=== PATIENT | male | born 1970 | race Caucasian/White ===

== ENCOUNTER 2017-10-22 08:58 | Inpatient (IN) | payer MEDICARE, MEDICAID, OTHER ==
[2017-10-22 10:07] LABS: BASOPHIL % 0.4 % (0.0-2.0); EOSINOPHIL # 0.2 TH/MM3 (0-0.4); HEMATOCRIT 33.9 % (39.0-51.0); HEMO FLAGS DIFF FINAL; HEMOGLOBIN 10.4 GM/DL (13.0-17.0); LYMPH % 16.7 % (9.0-44.0); LYMPHOCYTE # 1.6 TH/MM3 (1.0-4.8); MEAN CELL VOLUME 68.5 FL (80.0-100.0); MEAN CORPUSCULAR HGB CONC 30.7 % (32.0-36.0); MEAN PLATELET VOLUME 8.2 FL (7.0-11.0); MONO % 8.5 % (0.0-8.0); MONOCYTE # 0.8 TH/MM3 (0-0.9); NEUT % 72.4 % (16.0-70.0); PLATELET COUNT 245 TH/MM3 (150-450); RED BLOOD COUNT 4.96 MIL/MM3 (4.50-5.90); WHITE BLOOD COUNT 9.6 TH/MM3 (4.0-11.0)
[2017-10-22 10:22] LABS: ALKALINE PHOSPHATASE 103 U/L (45-117); TOTAL BILIRUBIN ADULT 0.3 MG/DL (0.2-1.0); TOTAL PROTEIN 8.5 GM/DL (6.4-8.2)
[2017-10-22 10:25] LABS: ALBUMIN 4.3 GM/DL (3.4-5.0); ALT (GPT) 36 U/L (12-78); ANION GAP 9 MEQ/L (5-15); AST (GOT) 22 U/L (15-37); BICARBONATE 24.5 MEQ/L (21.0-32.0); BLOOD UREA NITROGEN 23 MG/DL (7-18); CALCIUM 9.5 MG/DL (8.5-10.1); CHLORIDE 107 MEQ/L (98-107); CREATININE 1.22 MG/DL (0.60-1.30); GLOMERULAR FILTRATION RATE 64 ML/MIN (>89); GLUCOSE,RANDOM 154 MG/DL (74-106); SODIUM (NA) 140 MEQ/L (136-145)
[2017-10-22 10:31] LABS: AMPHETAMINE, URINE NEG (NEG); BARBITURATES, URINE NEG (NEG); BENZODIAZEPINE,URINE NEG (NEG); CANNABINOIDS, URINE NEG (NEG); COCAINE, URINE NEG (NEG)
[2017-10-22] MEDS ORDERED: LORazepam 2 MG/ML VIAL IM (17:45)
[2017-10-22] MEDS ORDERED: IBUPROFEN 600 MG TAB PO (17:45)
[2017-10-22] MEDS ORDERED: ALUMINUM/MAGNESIUM/SIMETH 30 ML CUP PO (17:45)
[2017-10-22] MEDS: hydrALAZINE HCL 100 MG TAB PO (18:00)
[2017-10-22] MEDS: MYCOPHENOLATE MOFETIL 250 MG CAP PO (20:58)
[2017-10-22] MEDS: POTASSIUM CHLORIDE 20 MEQ CONTROLLED RELEASE TAB PO (20:58)
[2017-10-22] MEDS: PRAVASTATIN SOD 40 MG TAB PO (20:59)
[2017-10-22] MEDS: OXcarbazepine 300 MG TAB PO (20:59)
[2017-10-22] MEDS: LORazepam 1 MG TAB PO (21:47)
[2017-10-22] MEDS: MAGNESIUM OXIDE 400 MG TAB PO (21:47)
[2017-10-23] MEDS: hydrALAZINE HCL 100 MG TAB PO ×3 (09:24→18:13)
[2017-10-23] MEDS: TACROLIMUS 1 MG CAP PO (09:24)
[2017-10-23] MEDS: RIVAROXABAN 20 MG TAB PO (09:24)
[2017-10-23] MEDS: TORSEMIDE 20 MG TAB PO (09:24)
[2017-10-23] MEDS: MYCOPHENOLATE MOFETIL 250 MG CAP PO ×2 (09:25→20:49)
[2017-10-23] MEDS: POTASSIUM CHLORIDE 20 MEQ CONTROLLED RELEASE TAB PO ×2 (09:25→20:49)
[2017-10-23] MEDS: OXcarbazepine 300 MG TAB PO ×2 (09:25→20:49)
[2017-10-23] MEDS: PANTOPRAZOLE SOD 40 MG DELAYED RELEASE TAB PO (09:25)
[2017-10-23] MEDS: MAGNESIUM OXIDE 400 MG TAB PO ×2 (11:27→22:07)
[2017-10-23 11:44] LABS: AUTOMATED NEUTROPHIL # 8.5 TH/MM3 (1.8-7.7); BASOPHIL % 0.4 % (0.0-2.0); EOSINOPHIL # 0.3 TH/MM3 (0-0.4); EOSINOPHIL % 2.3 % (0.0-4.0); HEMATOCRIT 34.1 % (39.0-51.0); HEMO FLAGS DIFF FINAL; HEMOGLOBIN 10.4 GM/DL (13.0-17.0); LYMPH % 17.9 % (9.0-44.0); LYMPHOCYTE # 2.1 TH/MM3 (1.0-4.8); MEAN CELL VOLUME 67.5 FL (80.0-100.0); MEAN CORPUSCULAR HEMOGLOBIN 20.6 PG (27.0-34.0); MEAN CORPUSCULAR HGB CONC 30.6 % (32.0-36.0); MEAN PLATELET VOLUME 7.5 FL (7.0-11.0); MONO % 7.6 % (0.0-8.0); MONOCYTE # 0.9 TH/MM3 (0-0.9); NEUT % 71.8 % (16.0-70.0); PLATELET COUNT 291 TH/MM3 (150-450); RED BLOOD COUNT 5.06 MIL/MM3 (4.50-5.90); RED CELL DISTRIBUTION WIDTH 17.9 % (11.6-17.2); WHITE BLOOD COUNT 11.8 TH/MM3 (4.0-11.0)
[2017-10-23 12:15] LABS: ALBUMIN 4.4 GM/DL (3.4-5.0); ALT (GPT) 39 U/L (12-78); ANION GAP 11 MEQ/L (5-15); AST (GOT) 19 U/L (15-37); BICARBONATE 24.3 MEQ/L (21.0-32.0); BLOOD UREA NITROGEN 16 MG/DL (7-18); CALCIUM 9.5 MG/DL (8.5-10.1); CHLORIDE 101 MEQ/L (98-107); CHOLESTEROL 250 MG/DL (120-200); CREATININE 1.18 MG/DL (0.60-1.30); GLOMERULAR FILTRATION RATE 66 ML/MIN (>89); GLUCOSE,RANDOM 149 MG/DL (74-106); POTASSIUM 3.5 MEQ/L (3.5-5.1); SODIUM (NA) 136 MEQ/L (136-145)
[2017-10-23 12:40] LABS: ALKALINE PHOSPHATASE 110 U/L (45-117); CHOLESTEROL/ HDL RATIO 8.44 RATIO; HDL CHOLESTEROL 29.6 MG/DL (40.0-60.0); LDL CHOLESTEROL 151 MG/DL (0-99); TOTAL BILIRUBIN ADULT 0.4 MG/DL (0.2-1.0); TOTAL PROTEIN 8.9 GM/DL (6.4-8.2); TRIGLYCERIDES 345 MG/DL (42-150)
[2017-10-23 12:43] LABS: HEMOGLOBIN A1C 6.8 % (4.3-6.0); HEMOGLOBIN A1a 1.7 %; HEMOGLOBIN A1b 2.1 %; HEMOGLOBIN Ao 81.4 %; HEMOGLOBIN LA1C 2.9 %; HEMOGLOBIN P3 6.2 %
[2017-10-23] MEDS ORDERED: DEXTROSE 50% IN WATER 50 ML VIAL(D50) IV PUSH (14:15)
[2017-10-23] MEDS ORDERED: GLUCAGON 1 MG/ML VIAL OTHER (14:15)
[2017-10-23] MEDS: CHOLECALCIFEROL (VIT D3) 1000 UNIT TAB PO (16:04)
[2017-10-23] MEDS: ATORVASTATIN 40 MG TAB PO (16:04)
[2017-10-23] MEDS: INSULIN ASPART SUPPLEMENTAL SCALE SQ ×2 (16:11→20:46)
[2017-10-23] MEDS: TACROLIMUS 0.5 MG CAP PO (18:13)
[2017-10-23] MEDS ORDERED: TACROLIMUS 0.5 MG CAP PO (18:30)
[2017-10-23] MEDS: LORazepam 1 MG TAB PO (20:48)
[2017-10-23] MEDS ORDERED: PRAVASTATIN SOD 40 MG TAB PO (21:00)
[2017-10-24] MEDS: TACROLIMUS 1 MG CAP PO (05:56)
[2017-10-24] MEDS: INSULIN ASPART SUPPLEMENTAL SCALE SQ ×4 (08:00→20:43)
[2017-10-24] MEDS: hydrALAZINE HCL 100 MG TAB PO ×3 (08:43→17:29)
[2017-10-24] MEDS: MYCOPHENOLATE MOFETIL 250 MG CAP PO ×2 (08:43→20:40)
[2017-10-24] MEDS: ATORVASTATIN 40 MG TAB PO (08:43)
[2017-10-24] MEDS: TORSEMIDE 20 MG TAB PO (08:44)
[2017-10-24] MEDS: OXcarbazepine 300 MG TAB PO ×2 (08:44→20:40)
[2017-10-24] MEDS: POTASSIUM CHLORIDE 20 MEQ CONTROLLED RELEASE TAB PO ×2 (08:44→20:40)
[2017-10-24] MEDS: CHOLECALCIFEROL (VIT D3) 1000 UNIT TAB PO (08:44)
[2017-10-24] MEDS: PANTOPRAZOLE SOD 40 MG DELAYED RELEASE TAB PO (08:44)
[2017-10-24] MEDS: RIVAROXABAN 20 MG TAB PO (08:46)
[2017-10-24 11:34] LABS: HEMATOCRIT 31.7 % (39.0-51.0); HEMOGLOBIN 9.9 GM/DL (13.0-17.0); MEAN CELL VOLUME 68.3 FL (80.0-100.0); MEAN CORPUSCULAR HEMOGLOBIN 21.2 PG (27.0-34.0); MEAN CORPUSCULAR HGB CONC 31.1 % (32.0-36.0); MEAN PLATELET VOLUME 8.6 FL (7.0-11.0); PLATELET COUNT 295 TH/MM3 (150-450); RED BLOOD COUNT 4.64 MIL/MM3 (4.50-5.90); RED CELL DISTRIBUTION WIDTH 18.1 % (11.6-17.2); REVIEW FLAG FINAL; WHITE BLOOD COUNT 12.4 TH/MM3 (4.0-11.0)
[2017-10-24] MEDS: MAGNESIUM OXIDE 400 MG TAB PO ×2 (12:04→22:49)
[2017-10-24 12:17] LABS: ANION GAP 11 MEQ/L (5-15); BICARBONATE 24.4 MEQ/L (21.0-32.0); BLOOD UREA NITROGEN 28 MG/DL (7-18); CHLORIDE 100 MEQ/L (98-107); CREATININE 1.84 MG/DL (0.60-1.30); GLOMERULAR FILTRATION RATE 40 ML/MIN (>89); GLUCOSE,RANDOM 167 MG/DL (74-106); POTASSIUM 3.7 MEQ/L (3.5-5.1); SODIUM (NA) 135 MEQ/L (136-145)
[2017-10-24] MEDS: TACROLIMUS 0.5 MG CAP PO (17:28)
[2017-10-24] MEDS: METOPROLOL TARTRATE 25 MG TAB PO ×2 (17:29→20:41)
[2017-10-24 21:12] LABS: BILIRUBIN, URINE NEG (NEG); BLOOD, URINE NEG (NEG); COMMENT (UR) CULT NOT INDICATED; CULTURE IF INDICATED CULT NOT INDICATED; GLUCOSE,URINE NEG (NEG); HYALINE CAST, URINE 3 /lpf (RARE); KETONE, URINE NEG (NEG); MUCUS URINE FEW /lpf (OCC); NITRITE,URINE NEG (NEG); URINE COLOR YELLOW (YELLW/STRAW); URINE LEUKOCYTE ESTERASE NEG (NEG)
[2017-10-25] MEDS: TACROLIMUS 1 MG CAP PO (05:04)
[2017-10-25] MEDS: INSULIN ASPART SUPPLEMENTAL SCALE SQ ×2 (07:40→16:00)
[2017-10-25] MEDS: PANTOPRAZOLE SOD 40 MG DELAYED RELEASE TAB PO (08:43)
[2017-10-25] MEDS: TORSEMIDE 20 MG TAB PO (08:43)
[2017-10-25] MEDS: hydrALAZINE HCL 100 MG TAB PO ×3 (08:43→16:48)
[2017-10-25] MEDS: RIVAROXABAN 20 MG TAB PO (08:43)
[2017-10-25] MEDS: POTASSIUM CHLORIDE 20 MEQ CONTROLLED RELEASE TAB PO ×2 (08:44→21:00)
[2017-10-25] MEDS: MYCOPHENOLATE MOFETIL 250 MG CAP PO ×2 (08:44→21:00)
[2017-10-25] MEDS: OXcarbazepine 300 MG TAB PO ×2 (08:44→21:00)
[2017-10-25] MEDS: METOPROLOL TARTRATE 25 MG TAB PO ×2 (08:44→21:00)
[2017-10-25] MEDS: CHOLECALCIFEROL (VIT D3) 1000 UNIT TAB PO (08:44)
[2017-10-25] MEDS: ATORVASTATIN 40 MG TAB PO (08:44)
[2017-10-25] MEDS: MAGNESIUM OXIDE 400 MG TAB PO ×2 (11:00→22:37)
[2017-10-25 12:28] LABS: TACROLIMUS 8.4 NG/ML (5.0-20.0)
[2017-10-25] MEDS: TACROLIMUS 0.5 MG CAP PO (16:48)
[2017-10-26] MEDS: TACROLIMUS 1 MG CAP PO (06:00)
[2017-10-26] MEDS: INSULIN ASPART SUPPLEMENTAL SCALE SQ ×2 (06:38→15:44)
[2017-10-26] MEDS: hydrALAZINE HCL 100 MG TAB PO ×3 (07:54→17:12)
[2017-10-26] MEDS: RIVAROXABAN 20 MG TAB PO (07:54)
[2017-10-26] MEDS: PANTOPRAZOLE SOD 40 MG DELAYED RELEASE TAB PO (07:55)
[2017-10-26] MEDS: POTASSIUM CHLORIDE 20 MEQ CONTROLLED RELEASE TAB PO ×2 (07:55→19:57)
[2017-10-26] MEDS: CHOLECALCIFEROL (VIT D3) 1000 UNIT TAB PO (07:55)
[2017-10-26] MEDS: TORSEMIDE 20 MG TAB PO (07:55)
[2017-10-26] MEDS: OXcarbazepine 300 MG TAB PO ×2 (07:55→19:57)
[2017-10-26] MEDS: ATORVASTATIN 40 MG TAB PO (07:55)
[2017-10-26] MEDS: METOPROLOL TARTRATE 25 MG TAB PO ×2 (07:55→19:53)
[2017-10-26] MEDS: MYCOPHENOLATE MOFETIL 250 MG CAP PO ×2 (07:55→19:57)
[2017-10-26 09:16] LABS: HEMATOCRIT 31.3 % (39.0-51.0); HEMOGLOBIN 9.7 GM/DL (13.0-17.0); MEAN CELL VOLUME 68.2 FL (80.0-100.0); MEAN CORPUSCULAR HEMOGLOBIN 21.2 PG (27.0-34.0); MEAN CORPUSCULAR HGB CONC 31.1 % (32.0-36.0); MEAN PLATELET VOLUME 8.5 FL (7.0-11.0); PLATELET COUNT 271 TH/MM3 (150-450); RED BLOOD COUNT 4.59 MIL/MM3 (4.50-5.90); RED CELL DISTRIBUTION WIDTH 18.2 % (11.6-17.2); REVIEW FLAG FINAL; WHITE BLOOD COUNT 11.8 TH/MM3 (4.0-11.0)
[2017-10-26 09:42] LABS: BICARBONATE 24.5 MEQ/L (21.0-32.0); BLOOD UREA NITROGEN 30 MG/DL (7-18); CALCIUM 9.2 MG/DL (8.5-10.1); CREATININE 1.67 MG/DL (0.60-1.30); GLOMERULAR FILTRATION RATE 44 ML/MIN (>89); GLUCOSE,RANDOM 189 MG/DL (74-106)
[2017-10-26 09:57] LABS: ANION GAP 11 MEQ/L (5-15); CHLORIDE 103 MEQ/L (98-107); POTASSIUM 3.8 MEQ/L (3.5-5.1); SODIUM (NA) 138 MEQ/L (136-145)
[2017-10-26] MEDS: MAGNESIUM OXIDE 400 MG TAB PO ×2 (11:00→23:10)
[2017-10-26] MEDS: hydrOXYzine HCL 50 MG TAB PO (11:25)
[2017-10-26] MEDS: ACETAMINOPHEN 325 MG TAB PO (15:45)
[2017-10-26] MEDS: TACROLIMUS 0.5 MG CAP PO (17:12)
[2017-10-27] MEDS: TACROLIMUS 1 MG CAP PO (06:35)
[2017-10-27] MEDS: INSULIN ASPART SUPPLEMENTAL SCALE SQ ×2 (07:00→15:56)
[2017-10-27] MEDS: METOPROLOL TARTRATE 25 MG TAB PO ×2 (08:19→22:20)
[2017-10-27] MEDS: MYCOPHENOLATE MOFETIL 250 MG CAP PO ×2 (08:19→22:18)
[2017-10-27] MEDS: ATORVASTATIN 40 MG TAB PO (08:20)
[2017-10-27] MEDS: OXcarbazepine 300 MG TAB PO ×2 (08:20→22:18)
[2017-10-27] MEDS: POTASSIUM CHLORIDE 20 MEQ CONTROLLED RELEASE TAB PO ×2 (08:20→22:18)
[2017-10-27] MEDS: PANTOPRAZOLE SOD 40 MG DELAYED RELEASE TAB PO (08:20)
[2017-10-27] MEDS: TORSEMIDE 20 MG TAB PO (08:20)
[2017-10-27] MEDS: hydrALAZINE HCL 100 MG TAB PO ×3 (08:23→17:44)
[2017-10-27] MEDS: CHOLECALCIFEROL (VIT D3) 1000 UNIT TAB PO (09:08)
[2017-10-27] MEDS: RIVAROXABAN 20 MG TAB PO (09:08)
[2017-10-27] MEDS: MAGNESIUM OXIDE 400 MG TAB PO ×2 (12:35→23:31)
[2017-10-27 17:09] LABS: ANION GAP 11 MEQ/L (5-15); BICARBONATE 23.8 MEQ/L (21.0-32.0); BLOOD UREA NITROGEN 25 MG/DL (7-18); CALCIUM 8.6 MG/DL (8.5-10.1); CHLORIDE 104 MEQ/L (98-107); CREATININE 1.81 MG/DL (0.60-1.30); GLOMERULAR FILTRATION RATE 40 ML/MIN (>89); GLUCOSE,RANDOM 136 MG/DL (74-106); POTASSIUM 3.9 MEQ/L (3.5-5.1); SODIUM (NA) 139 MEQ/L (136-145)
[2017-10-27] MEDS: TACROLIMUS 0.5 MG CAP PO (17:44)
[2017-10-27] MEDS: ACETAMINOPHEN 325 MG TAB PO (23:38)
[2017-10-28] MEDS: ACETAMINOPHEN 325 MG TAB PO (05:05)
[2017-10-28] MEDS: TACROLIMUS 1 MG CAP PO (05:05)
[2017-10-28] MEDS: INSULIN ASPART SUPPLEMENTAL SCALE SQ ×2 (06:26→16:00)
[2017-10-28] MEDS: POTASSIUM CHLORIDE 20 MEQ CONTROLLED RELEASE TAB PO ×2 (08:22→21:00)
[2017-10-28] MEDS: METOPROLOL TARTRATE 25 MG TAB PO ×2 (08:23→21:00)
[2017-10-28] MEDS: OXcarbazepine 300 MG TAB PO ×2 (08:23→21:14)
[2017-10-28] MEDS: TORSEMIDE 20 MG TAB PO (08:23)
[2017-10-28] MEDS: PANTOPRAZOLE SOD 40 MG DELAYED RELEASE TAB PO (08:23)
[2017-10-28] MEDS: hydrALAZINE HCL 100 MG TAB PO ×3 (08:23→17:09)
[2017-10-28] MEDS: ATORVASTATIN 40 MG TAB PO (08:23)
[2017-10-28] MEDS: MYCOPHENOLATE MOFETIL 250 MG CAP PO ×2 (08:23→21:14)
[2017-10-28] MEDS: RIVAROXABAN 20 MG TAB PO (08:23)
[2017-10-28] MEDS: CHOLECALCIFEROL (VIT D3) 1000 UNIT TAB PO (08:27)
[2017-10-28] MEDS: MAGNESIUM OXIDE 400 MG TAB PO ×2 (12:28→22:59)
[2017-10-28] MEDS: TACROLIMUS 0.5 MG CAP PO (17:09)
[2017-10-29] MEDS: LORazepam 1 MG TAB PO ×2 (00:44→20:42)
[2017-10-29] MEDS: MAGNESIUM HYDROXIDE SUSP 30 ML CUP PO (02:05)
[2017-10-29] MEDS: TACROLIMUS 1 MG CAP PO (06:42)
[2017-10-29] MEDS: INSULIN ASPART SUPPLEMENTAL SCALE SQ ×2 (06:48→16:00)
[2017-10-29] MEDS: PANTOPRAZOLE SOD 40 MG DELAYED RELEASE TAB PO (08:26)
[2017-10-29] MEDS: RIVAROXABAN 20 MG TAB PO (08:26)
[2017-10-29] MEDS: OXcarbazepine 300 MG TAB PO ×2 (08:26→20:38)
[2017-10-29] MEDS: METOPROLOL TARTRATE 25 MG TAB PO ×2 (08:26→20:38)
[2017-10-29] MEDS: CHOLECALCIFEROL (VIT D3) 1000 UNIT TAB PO (08:26)
[2017-10-29] MEDS: POTASSIUM CHLORIDE 20 MEQ CONTROLLED RELEASE TAB PO ×2 (08:26→20:38)
[2017-10-29] MEDS: hydrALAZINE HCL 100 MG TAB PO ×3 (08:27→17:21)
[2017-10-29] MEDS: ATORVASTATIN 40 MG TAB PO (08:27)
[2017-10-29] MEDS: MYCOPHENOLATE MOFETIL 250 MG CAP PO ×2 (08:27→20:38)
[2017-10-29] MEDS: TORSEMIDE 20 MG TAB PO (08:27)
[2017-10-29] MEDS: MAGNESIUM OXIDE 400 MG TAB PO ×2 (11:00→23:07)
[2017-10-29 12:56] LABS: ANION GAP 7 MEQ/L (5-15); BICARBONATE 27.1 MEQ/L (21.0-32.0); BLOOD UREA NITROGEN 22 MG/DL (7-18); CALCIUM 8.9 MG/DL (8.5-10.1); CHLORIDE 103 MEQ/L (98-107); CREATININE 1.52 MG/DL (0.60-1.30); GLOMERULAR FILTRATION RATE 49 ML/MIN (>89); GLUCOSE,RANDOM 177 MG/DL (74-106); POTASSIUM 4.1 MEQ/L (3.5-5.1); SODIUM (NA) 137 MEQ/L (136-145)
[2017-10-29] MEDS: TACROLIMUS 0.5 MG CAP PO (17:21)
[2017-10-29 19:31] LABS: TACROLIMUS 6.2 NG/ML (5.0-20.0)
[2017-10-29] MEDS: hydrOXYzine HCL 50 MG TAB PO (20:38)
[2017-10-30] MEDS: TACROLIMUS 1 MG CAP PO (06:19)
[2017-10-30] MEDS: INSULIN ASPART SUPPLEMENTAL SCALE SQ ×2 (06:38→16:00)
[2017-10-30] MEDS: ACETAMINOPHEN 325 MG TAB PO ×2 (06:56→21:23)
[2017-10-30] MEDS: ATORVASTATIN 40 MG TAB PO (08:25)
[2017-10-30] MEDS: MYCOPHENOLATE MOFETIL 250 MG CAP PO ×2 (08:25→21:21)
[2017-10-30] MEDS: RIVAROXABAN 20 MG TAB PO (08:25)
[2017-10-30] MEDS: TORSEMIDE 20 MG TAB PO (08:25)
[2017-10-30] MEDS: OXcarbazepine 300 MG TAB PO ×2 (08:26→21:22)
[2017-10-30] MEDS: POTASSIUM CHLORIDE 20 MEQ CONTROLLED RELEASE TAB PO ×2 (08:26→21:22)
[2017-10-30] MEDS: PANTOPRAZOLE SOD 40 MG DELAYED RELEASE TAB PO (08:26)
[2017-10-30] MEDS: CHOLECALCIFEROL (VIT D3) 1000 UNIT TAB PO (08:26)
[2017-10-30] MEDS: METOPROLOL TARTRATE 25 MG TAB PO ×2 (08:30→21:22)
[2017-10-30] MEDS: hydrALAZINE HCL 100 MG TAB PO ×3 (08:30→18:00)
[2017-10-30] MEDS: MAGNESIUM OXIDE 400 MG TAB PO ×2 (11:47→23:00)
[2017-10-30] MEDS: TACROLIMUS 0.5 MG CAP PO (18:00)
[2017-10-30] MEDS: LORazepam 1 MG TAB PO (21:22)
[2017-10-31] MEDS: TACROLIMUS 1 MG CAP PO (06:13)
[2017-10-31] MEDS: INSULIN ASPART SUPPLEMENTAL SCALE SQ ×2 (06:17→16:00)
[2017-10-31] MEDS: hydrALAZINE HCL 100 MG TAB PO ×3 (09:00→17:31)
[2017-10-31] MEDS: ACETAMINOPHEN 325 MG TAB PO ×2 (09:41→20:55)
[2017-10-31] MEDS: POTASSIUM CHLORIDE 20 MEQ CONTROLLED RELEASE TAB PO ×2 (09:43→20:50)
[2017-10-31] MEDS: MYCOPHENOLATE MOFETIL 250 MG CAP PO ×2 (09:43→20:50)
[2017-10-31] MEDS: ATORVASTATIN 40 MG TAB PO (09:43)
[2017-10-31] MEDS: RIVAROXABAN 20 MG TAB PO (09:44)
[2017-10-31] MEDS: OXcarbazepine 300 MG TAB PO ×2 (09:44→20:50)
[2017-10-31] MEDS: CHOLECALCIFEROL (VIT D3) 1000 UNIT TAB PO (09:44)
[2017-10-31] MEDS: TORSEMIDE 20 MG TAB PO (09:44)
[2017-10-31] MEDS: PANTOPRAZOLE SOD 40 MG DELAYED RELEASE TAB PO (09:45)
[2017-10-31] MEDS: METOPROLOL TARTRATE 25 MG TAB PO ×2 (09:45→20:50)
[2017-10-31 11:07] LABS: ANION GAP 9 MEQ/L (5-15); BICARBONATE 24.9 MEQ/L (21.0-32.0); BLOOD UREA NITROGEN 22 MG/DL (7-18); CALCIUM 9.3 MG/DL (8.5-10.1); CHLORIDE 104 MEQ/L (98-107); CREATININE 1.55 MG/DL (0.60-1.30); GLOMERULAR FILTRATION RATE 48 ML/MIN (>89); GLUCOSE,RANDOM 197 MG/DL (74-106); SODIUM (NA) 138 MEQ/L (136-145)
[2017-10-31] MEDS: MAGNESIUM OXIDE 400 MG TAB PO ×2 (11:53→22:38)
[2017-10-31 12:17] LABS: TROPONIN I 0.02 NG/ML (0.02-0.05)
[2017-10-31] MEDS: TACROLIMUS 0.5 MG CAP PO (17:32)
[2017-11-01] MEDS: TACROLIMUS 1 MG CAP PO (06:21)
[2017-11-01] MEDS: INSULIN ASPART SUPPLEMENTAL SCALE SQ ×2 (06:36→16:00)
[2017-11-01] MEDS: OXcarbazepine 300 MG TAB PO ×2 (08:29→20:56)
[2017-11-01] MEDS: RIVAROXABAN 20 MG TAB PO (08:30)
[2017-11-01] MEDS: MYCOPHENOLATE MOFETIL 250 MG CAP PO ×2 (08:30→21:52)
[2017-11-01] MEDS: PANTOPRAZOLE SOD 40 MG DELAYED RELEASE TAB PO (08:30)
[2017-11-01] MEDS: CHOLECALCIFEROL (VIT D3) 1000 UNIT TAB PO (08:30)
[2017-11-01] MEDS: ATORVASTATIN 40 MG TAB PO (08:30)
[2017-11-01] MEDS: TORSEMIDE 20 MG TAB PO (08:30)
[2017-11-01] MEDS: hydrALAZINE HCL 100 MG TAB PO ×3 (08:31→17:55)
[2017-11-01] MEDS: METOPROLOL TARTRATE 25 MG TAB PO ×2 (08:31→20:56)
[2017-11-01] MEDS: POTASSIUM CHLORIDE 20 MEQ CONTROLLED RELEASE TAB PO ×2 (08:31→20:56)
[2017-11-01] MEDS: MAGNESIUM OXIDE 400 MG TAB PO ×2 (13:07→23:55)
[2017-11-01] MEDS: TACROLIMUS 0.5 MG CAP PO (17:56)
[2017-11-01] MEDS: ACETAMINOPHEN 325 MG TAB PO (17:56)
[2017-11-01] MEDS: LORazepam 1 MG TAB PO (21:52)
[2017-11-02] MEDS: TACROLIMUS 1 MG CAP PO (05:40)
[2017-11-02] MEDS: INSULIN ASPART SUPPLEMENTAL SCALE SQ ×2 (07:00→16:00)
[2017-11-02] MEDS: METOPROLOL TARTRATE 25 MG TAB PO ×2 (08:17→20:29)
[2017-11-02] MEDS: ATORVASTATIN 40 MG TAB PO (08:17)
[2017-11-02] MEDS: OXcarbazepine 300 MG TAB PO ×2 (08:17→20:29)
[2017-11-02] MEDS: POTASSIUM CHLORIDE 20 MEQ CONTROLLED RELEASE TAB PO ×2 (08:17→20:29)
[2017-11-02] MEDS: PANTOPRAZOLE SOD 40 MG DELAYED RELEASE TAB PO (08:17)
[2017-11-02] MEDS: CHOLECALCIFEROL (VIT D3) 1000 UNIT TAB PO (08:17)
[2017-11-02] MEDS: MYCOPHENOLATE MOFETIL 250 MG CAP PO ×2 (08:17→20:29)
[2017-11-02] MEDS: RIVAROXABAN 20 MG TAB PO (08:17)
[2017-11-02] MEDS: hydrALAZINE HCL 100 MG TAB PO ×3 (08:18→17:21)
[2017-11-02] MEDS: TORSEMIDE 20 MG TAB PO (08:21)
[2017-11-02] MEDS: MAGNESIUM OXIDE 400 MG TAB PO ×2 (11:42→20:32)
[2017-11-02] MEDS: TACROLIMUS 0.5 MG CAP PO (17:23)
[2017-11-02] MEDS: LORazepam 1 MG TAB PO (20:29)
[2017-11-02] MEDS ORDERED: LORazepam 2 MG/ML VIAL IV PUSH (23:00)
[2017-11-02 23:15] LABS: AUTOMATED NEUTROPHIL # 6.7 TH/MM3 (1.8-7.7); BASOPHIL # 0.1 TH/MM3 (0-0.2); BASOPHIL % 0.6 % (0.0-2.0); EOSINOPHIL # 0.2 TH/MM3 (0-0.4); EOSINOPHIL % 1.9 % (0.0-4.0); HEMATOCRIT 28.9 % (39.0-51.0); HEMO FLAGS DIFF FINAL; HEMOGLOBIN 9.1 GM/DL (13.0-17.0); LYMPH % 27.1 % (9.0-44.0); LYMPHOCYTE # 2.9 TH/MM3 (1.0-4.8); MEAN CELL VOLUME 68.3 FL (80.0-100.0); MEAN CORPUSCULAR HEMOGLOBIN 21.4 PG (27.0-34.0); MEAN CORPUSCULAR HGB CONC 31.4 % (32.0-36.0); MEAN PLATELET VOLUME 8.4 FL (7.0-11.0); MONOCYTE # 0.9 TH/MM3 (0-0.9); NEUT % 62.4 % (16.0-70.0); PLATELET COUNT 242 TH/MM3 (150-450); RED BLOOD COUNT 4.24 MIL/MM3 (4.50-5.90); RED CELL DISTRIBUTION WIDTH 18.7 % (11.6-17.2); WHITE BLOOD COUNT 10.8 TH/MM3 (4.0-11.0)
[2017-11-02 23:39] LABS: ALBUMIN 3.5 GM/DL (3.4-5.0); ANION GAP 10 MEQ/L (5-15); AST (GOT) 26 U/L (15-37); BICARBONATE 23.2 MEQ/L (21.0-32.0); BLOOD UREA NITROGEN 25 MG/DL (7-18); CALCIUM 8.6 MG/DL (8.5-10.1); CHLORIDE 104 MEQ/L (98-107); CREATININE 1.77 MG/DL (0.60-1.30); GLOMERULAR FILTRATION RATE 41 ML/MIN (>89); GLUCOSE,RANDOM 168 MG/DL (74-106); POTASSIUM 3.7 MEQ/L (3.5-5.1); SODIUM (NA) 137 MEQ/L (136-145)
[2017-11-02 23:40] LABS: ALT (GPT) 34 U/L (12-78)
[2017-11-02 23:43] LABS: ALKALINE PHOSPHATASE 103 U/L (45-117); TOTAL BILIRUBIN ADULT 0.3 MG/DL (0.2-1.0)
[2017-11-03] MEDS: TACROLIMUS 1 MG CAP PO (06:00)
[2017-11-03] MEDS: INSULIN ASPART SUPPLEMENTAL SCALE SQ ×2 (06:26→16:00)
[2017-11-03] MEDS: OXcarbazepine 300 MG TAB PO ×2 (09:00→20:26)
[2017-11-03] MEDS: CHOLECALCIFEROL (VIT D3) 1000 UNIT TAB PO (09:00)
[2017-11-03] MEDS: MYCOPHENOLATE MOFETIL 250 MG CAP PO ×2 (09:00→20:25)
[2017-11-03] MEDS: RIVAROXABAN 20 MG TAB PO (09:00)
[2017-11-03] MEDS: hydrALAZINE HCL 100 MG TAB PO ×2 (09:05→13:00)
[2017-11-03] MEDS: PANTOPRAZOLE SOD 40 MG DELAYED RELEASE TAB PO (09:05)
[2017-11-03] MEDS: METOPROLOL TARTRATE 25 MG TAB PO ×2 (09:06→20:27)
[2017-11-03] MEDS: POTASSIUM CHLORIDE 20 MEQ CONTROLLED RELEASE TAB PO ×2 (09:07→20:26)
[2017-11-03] MEDS: ATORVASTATIN 40 MG TAB PO (09:07)
[2017-11-03] MEDS: ARIPiprazole 5 MG TAB PO (09:45)
[2017-11-03] MEDS: TORSEMIDE 20 MG TAB PO (10:15)
[2017-11-03] MEDS: MAGNESIUM OXIDE 400 MG TAB PO ×2 (11:00→22:25)
[2017-11-03] MEDS: TACROLIMUS 0.5 MG CAP PO (18:00)
[2017-11-03] MEDS: ACETAMINOPHEN 325 MG TAB PO (21:13)
[2017-11-04] MEDS: TACROLIMUS 1 MG CAP PO ×4 (06:14→16:47)
[2017-11-04] MEDS: INSULIN ASPART SUPPLEMENTAL SCALE SQ ×2 (06:25→16:42)
[2017-11-04] MEDS: ATORVASTATIN 40 MG TAB PO (08:50)
[2017-11-04] MEDS: POTASSIUM CHLORIDE 20 MEQ CONTROLLED RELEASE TAB PO ×2 (08:50→20:45)
[2017-11-04] MEDS: ARIPiprazole 5 MG TAB PO (08:51)
[2017-11-04] MEDS: METOPROLOL TARTRATE 25 MG TAB PO ×2 (08:51→20:45)
[2017-11-04] MEDS: PANTOPRAZOLE SOD 40 MG DELAYED RELEASE TAB PO (08:51)
[2017-11-04] MEDS: OXcarbazepine 300 MG TAB PO ×2 (08:52→20:45)
[2017-11-04] MEDS: RIVAROXABAN 20 MG TAB PO (08:52)
[2017-11-04] MEDS: TORSEMIDE 20 MG TAB PO (08:52)
[2017-11-04] MEDS: MYCOPHENOLATE MOFETIL 250 MG CAP PO ×2 (08:53→20:45)
[2017-11-04] MEDS: CHOLECALCIFEROL (VIT D3) 1000 UNIT TAB PO (08:53)
[2017-11-04] MEDS: hydrALAZINE HCL 100 MG TAB PO ×3 (09:00→16:42)
[2017-11-04] MEDS: ACETAMINOPHEN 325 MG TAB PO ×2 (10:57→16:43)
[2017-11-04] MEDS: MAGNESIUM OXIDE 400 MG TAB PO ×2 (10:57→22:59)
[2017-11-04] MEDS: TACROLIMUS 0.5 MG CAP PO (16:49)
[2017-11-04] MEDS: LORazepam 1 MG TAB PO (20:45)
[2017-11-05] MEDS: INSULIN ASPART SUPPLEMENTAL SCALE SQ ×2 (06:36→15:58)
[2017-11-05] MEDS: MYCOPHENOLATE MOFETIL 250 MG CAP PO ×2 (09:45→21:02)
[2017-11-05] MEDS: RIVAROXABAN 20 MG TAB PO (09:45)
[2017-11-05] MEDS: CHOLECALCIFEROL (VIT D3) 1000 UNIT TAB PO (09:45)
[2017-11-05] MEDS: POTASSIUM CHLORIDE 20 MEQ CONTROLLED RELEASE TAB PO ×2 (09:45→21:02)
[2017-11-05] MEDS: ATORVASTATIN 40 MG TAB PO (09:46)
[2017-11-05] MEDS: METOPROLOL TARTRATE 25 MG TAB PO ×2 (09:46→21:02)
[2017-11-05] MEDS: PANTOPRAZOLE SOD 40 MG DELAYED RELEASE TAB PO (09:46)
[2017-11-05] MEDS: TORSEMIDE 20 MG TAB PO (09:46)
[2017-11-05] MEDS: OXcarbazepine 300 MG TAB PO ×2 (09:46→23:54)
[2017-11-05] MEDS: hydrALAZINE HCL 100 MG TAB PO ×3 (09:47→17:49)
[2017-11-05] MEDS: MAGNESIUM OXIDE 400 MG TAB PO ×2 (12:03→23:00)
[2017-11-05] MEDS: ACETAMINOPHEN 325 MG TAB PO (14:49)
[2017-11-05] MEDS: TACROLIMUS 0.5 MG CAP PO (17:49)
[2017-11-06] MEDS: TACROLIMUS 1 MG CAP PO (06:01)
[2017-11-06] MEDS: INSULIN ASPART SUPPLEMENTAL SCALE SQ ×2 (06:24→16:00)
[2017-11-06] MEDS: CHOLECALCIFEROL (VIT D3) 1000 UNIT TAB PO (08:24)
[2017-11-06] MEDS: PANTOPRAZOLE SOD 40 MG DELAYED RELEASE TAB PO (08:24)
[2017-11-06] MEDS: OXcarbazepine 300 MG TAB PO ×2 (08:24→21:14)
[2017-11-06] MEDS: RIVAROXABAN 20 MG TAB PO (08:24)
[2017-11-06] MEDS: MYCOPHENOLATE MOFETIL 250 MG CAP PO ×2 (08:24→21:13)
[2017-11-06] MEDS: TORSEMIDE 20 MG TAB PO (08:24)
[2017-11-06] MEDS: POTASSIUM CHLORIDE 20 MEQ CONTROLLED RELEASE TAB PO ×2 (08:24→21:13)
[2017-11-06] MEDS: METOPROLOL TARTRATE 25 MG TAB PO ×2 (08:24→21:14)
[2017-11-06] MEDS: hydrALAZINE HCL 100 MG TAB PO ×3 (08:25→17:15)
[2017-11-06] MEDS: ATORVASTATIN 40 MG TAB PO (09:00)
[2017-11-06] MEDS: PALIPERIDONE ER 1.5 MG TAB PO (09:22)
[2017-11-06] MEDS: hydrOXYzine HCL 50 MG TAB PO (10:00)
[2017-11-06] MEDS: MAGNESIUM OXIDE 400 MG TAB PO ×2 (11:12→21:16)
[2017-11-06] MEDS: TACROLIMUS 0.5 MG CAP PO (17:15)
[2017-11-06] MEDS: LORazepam 1 MG TAB PO (21:13)
[2017-11-06] MEDS: LACTIC ACID (AMMONIUM LACTATE) 12% LOTION 225 GM BTL TOPICAL (21:14)
[2017-11-07] MEDS: TACROLIMUS 1 MG CAP PO (06:00)
[2017-11-07] MEDS: INSULIN ASPART SUPPLEMENTAL SCALE SQ ×2 (06:54→16:00)
[2017-11-07] MEDS: ACETAMINOPHEN 325 MG TAB PO (08:32)
[2017-11-07] MEDS: TORSEMIDE 20 MG TAB PO (08:34)
[2017-11-07] MEDS: RIVAROXABAN 20 MG TAB PO (08:34)
[2017-11-07] MEDS: ATORVASTATIN 40 MG TAB PO (08:34)
[2017-11-07] MEDS: OXcarbazepine 300 MG TAB PO ×2 (08:34→20:54)
[2017-11-07] MEDS: POTASSIUM CHLORIDE 20 MEQ CONTROLLED RELEASE TAB PO ×2 (08:34→20:54)
[2017-11-07] MEDS: MYCOPHENOLATE MOFETIL 250 MG CAP PO ×2 (08:34→20:52)
[2017-11-07] MEDS: hydrALAZINE HCL 100 MG TAB PO ×3 (08:38→17:05)
[2017-11-07] MEDS: LACTIC ACID (AMMONIUM LACTATE) 12% LOTION 225 GM BTL TOPICAL ×3 (08:39→21:00)
[2017-11-07] MEDS: METOPROLOL TARTRATE 25 MG TAB PO ×2 (08:39→20:53)
[2017-11-07] MEDS: PALIPERIDONE ER 1.5 MG TAB PO (08:39)
[2017-11-07] MEDS: PANTOPRAZOLE SOD 40 MG DELAYED RELEASE TAB PO (08:39)
[2017-11-07] MEDS: CHOLECALCIFEROL (VIT D3) 1000 UNIT TAB PO (08:39)
[2017-11-07] MEDS: MAGNESIUM OXIDE 400 MG TAB PO ×2 (11:39→22:46)
[2017-11-07] MEDS: TACROLIMUS 0.5 MG CAP PO (17:05)
[2017-11-07] MEDS: LORazepam 1 MG TAB PO (22:53)
[2017-11-08] MEDS: TACROLIMUS 1 MG CAP PO (06:28)
[2017-11-08] MEDS: INSULIN ASPART SUPPLEMENTAL SCALE SQ ×2 (07:00→16:00)
[2017-11-08] MEDS: MYCOPHENOLATE MOFETIL 250 MG CAP PO ×2 (08:51→20:51)
[2017-11-08] MEDS: hydrALAZINE HCL 100 MG TAB PO ×3 (08:51→17:00)
[2017-11-08] MEDS: PALIPERIDONE ER 1.5 MG TAB PO (08:52)
[2017-11-08] MEDS: POTASSIUM CHLORIDE 20 MEQ CONTROLLED RELEASE TAB PO ×2 (08:52→20:53)
[2017-11-08] MEDS: METOPROLOL TARTRATE 25 MG TAB PO ×2 (08:52→20:53)
[2017-11-08] MEDS: CHOLECALCIFEROL (VIT D3) 1000 UNIT TAB PO (08:53)
[2017-11-08] MEDS: PANTOPRAZOLE SOD 40 MG DELAYED RELEASE TAB PO (08:53)
[2017-11-08] MEDS: OXcarbazepine 300 MG TAB PO ×2 (08:53→20:53)
[2017-11-08] MEDS: TORSEMIDE 20 MG TAB PO (09:00)
[2017-11-08] MEDS: RIVAROXABAN 20 MG TAB PO (09:00)
[2017-11-08] MEDS: ATORVASTATIN 40 MG TAB PO (09:00)
[2017-11-08] MEDS: LACTIC ACID (AMMONIUM LACTATE) 12% LOTION 225 GM BTL TOPICAL ×2 (09:00→21:00)
[2017-11-08] MEDS: MAGNESIUM OXIDE 400 MG TAB PO ×2 (11:00→23:37)
[2017-11-08] MEDS: ACETAMINOPHEN 325 MG TAB PO (14:39)
[2017-11-08] MEDS: TACROLIMUS 0.5 MG CAP PO (17:00)
[2017-11-08] MEDS: LORazepam 1 MG TAB PO (20:52)
[2017-11-08] MEDS: PILL SPLITTER OTHER (20:54)
[2017-11-08 22:42] LABS: TROPONIN I 0.24 NG/ML (0.02-0.05)
[2017-11-09] MEDS ORDERED: PALIPERIDONE ER 3 MG TAB PO (09:00)
== END 2017-11-09 02:02 | disposition home or self-care (01) | DRG 71 ==
LOC: H250 11-03 18:31 → H4EA 11-02 22:54 → NEPD 08:58 → NEDA 17:34 → H250 21:20
DX: G93.49 Other encephalopathy (principal); F02.81 Dementia in other diseases classified elsewhere, unspecified severity, with behavioral disturbance; Z94.1 Heart transplant status; N17.9 Acute kidney failure, unspecified; N18.4 Chronic kidney disease, stage 4 (severe); Z91.19 Patient's noncompliance with other medical treatment and regimen; E78.5 Hyperlipidemia, unspecified; E55.9 Vitamin D deficiency, unspecified; Z95.0 Presence of cardiac pacemaker; E11.9 Type 2 diabetes mellitus without complications; E86.0 Dehydration; M19.90 Unspecified osteoarthritis, unspecified site; I12.9 Hypertensive chronic kidney disease with stage 1 through stage 4 chronic kidney disease, or unspecified chronic kidney disease; R07.9 Chest pain, unspecified; M79.601 Pain in right arm; R56.9 Unspecified convulsions; L29.9 Pruritus, unspecified
CPT/HCPCS: 70450; 80048; 80053; 80061; 80183; 80197; 80307; 81001; 82306; 82607; 82948; 83036; 84443; 84484; 85025; 85027; 93005; 95819; 99285

== ENCOUNTER 2017-11-09 01:45 | Inpatient (IN) | payer MEDICARE, MEDICAID ==
[2017-11-09] MEDS ORDERED: SODIUM CHLORIDE 0.9% FLUSH 10 ML FLUSH IV FLUSH (02:30)
[2017-11-09] MEDS ORDERED: NALOXONE HCL 0.4 MG/ML AMP IV PUSH (02:30)
[2017-11-09] MEDS: NITROGLYCERIN 0.4 MG SL 25 TABS/BTL SL ×5 (03:08→09:42)
[2017-11-09 04:42] LABS: AUTOMATED NEUTROPHIL # 4.6 TH/MM3 (1.8-7.7); BASOPHIL % 0.6 % (0.0-2.0); EOSINOPHIL # 0.1 TH/MM3 (0-0.4); EOSINOPHIL % 1.8 % (0.0-4.0); HEMATOCRIT 27.4 % (39.0-51.0); HEMO FLAGS DIFF FINAL; HEMOGLOBIN 8.8 GM/DL (13.0-17.0); LYMPH % 24.6 % (9.0-44.0); LYMPHOCYTE # 1.8 TH/MM3 (1.0-4.8); MEAN CELL VOLUME 67.5 FL (80.0-100.0); MEAN CORPUSCULAR HEMOGLOBIN 21.6 PG (27.0-34.0); MEAN PLATELET VOLUME 7.7 FL (7.0-11.0); MONOCYTE # 0.6 TH/MM3 (0-0.9); PLATELET COUNT 239 TH/MM3 (150-450); RED BLOOD COUNT 4.06 MIL/MM3 (4.50-5.90); RED CELL DISTRIBUTION WIDTH 18.9 % (11.6-17.2); WHITE BLOOD COUNT 7.2 TH/MM3 (4.0-11.0)
[2017-11-09] MEDS ORDERED: HEPARIN-D5W 25,000 U/250 ML 250 ML IV (04:45)
[2017-11-09 05:09] LABS: ALBUMIN 3.6 GM/DL (3.4-5.0); ALT (GPT) 28 U/L (12-78); ANION GAP 8 MEQ/L (5-15); AST (GOT) 16 U/L (15-37); BICARBONATE 25.9 MEQ/L (21.0-32.0); BLOOD UREA NITROGEN 24 MG/DL (7-18); CHLORIDE 103 MEQ/L (98-107); CREATININE 1.47 MG/DL (0.60-1.30); GLOMERULAR FILTRATION RATE 51 ML/MIN (>89); GLUCOSE,RANDOM 117 MG/DL (74-106); POTASSIUM 3.7 MEQ/L (3.5-5.1); SODIUM (NA) 137 MEQ/L (136-145)
[2017-11-09 05:13] LABS: ALKALINE PHOSPHATASE 105 U/L (45-117); CREATINE KINASE 120 U/L (39-308); TOTAL BILIRUBIN ADULT 0.3 MG/DL (0.2-1.0); TROPONIN I 0.31 NG/ML (0.02-0.05)
[2017-11-09] MEDS ORDERED: GLUCAGON 1 MG/ML VIAL OTHER (05:30)
[2017-11-09] MEDS ORDERED: DEXTROSE 50% IN WATER 50 ML VIAL(D50) IV PUSH (05:30)
[2017-11-09] MEDS ORDERED: PILL SPLITTER OTHER (05:45)
[2017-11-09 05:54] LABS: APTT (PATIENT) 26.3 SEC (24.3-30.1); INTERNATIONAL NORMALIZED RATIO 1.2 RATIO; PROTHROMBIN TIME - PATIENT 12.3 SEC (9.8-11.6)
[2017-11-09] MEDS ORDERED: hydrOXYzine HCL 50 MG TAB PO (06:00)
[2017-11-09] MEDS ORDERED: LORazepam 2 MG/ML VIAL IV PUSH (06:00)
[2017-11-09] MEDS: TACROLIMUS 1 MG CAP PO ×2 (06:44→18:00)
[2017-11-09] MEDS: HEPARIN-D5W 25,000 U/250 ML 250 ML IV (06:53)
[2017-11-09] MEDS: INSULIN ASPART SUPPLEMENTAL SCALE SQ ×4 (08:00→21:16)
[2017-11-09] MEDS ORDERED: IOHEXOL 350 MG/ML 100 ML BTL (for Cath Lab) OTHER (08:57)
[2017-11-09] MEDS: OXcarbazepine 300 MG TAB PO ×3 (09:00→21:55)
[2017-11-09] MEDS: METOPROLOL TARTRATE 25 MG TAB PO ×2 (09:34→20:28)
[2017-11-09] MEDS: ATORVASTATIN 40 MG TAB PO (09:34)
[2017-11-09] MEDS: hydrALAZINE HCL 100 MG TAB PO ×3 (09:35→18:00)
[2017-11-09] MEDS: MAGNESIUM OXIDE 400 MG TAB PO ×2 (09:35→20:28)
[2017-11-09] MEDS: PANTOPRAZOLE SOD 40 MG DELAYED RELEASE TAB PO (09:35)
[2017-11-09] MEDS: POTASSIUM CHLORIDE 20 MEQ CONTROLLED RELEASE TAB PO ×2 (09:35→20:28)
[2017-11-09] MEDS: TORSEMIDE 20 MG TAB PO (09:35)
[2017-11-09] MEDS: CHOLECALCIFEROL (VIT D3) 1000 UNIT TAB PO (09:35)
[2017-11-09] MEDS: SODIUM CHLORIDE 0.9% FLUSH 10 ML FLUSH IV FLUSH ×2 (09:36→20:29)
[2017-11-09] MEDS: ARIPiprazole 5 MG TAB PO (10:16)
[2017-11-09] MEDS: MYCOPHENOLATE MOFETIL 250 MG CAP PO ×2 (10:16→21:55)
[2017-11-09] MEDS: PALIPERIDONE ER 3 MG TAB PO (10:17)
[2017-11-09 14:17] LABS: APTT (PATIENT) 32.7 SEC (24.3-30.1)
[2017-11-09] MEDS: ACETAMINOPHEN 325 MG TAB PO (14:47)
[2017-11-09] MEDS ORDERED: HEPARIN-NS/PF INJ 1,000 ML (15:15)
[2017-11-09] MEDS ORDERED: NITROGLYCERIN INJ 5 ML (15:20)
[2017-11-09] MEDS ORDERED: VERAPAMIL HCL 5 MG/2 ML VIAL (15:20)
[2017-11-09] MEDS ORDERED: HEPARIN SODIUM - IV 10,000 UNITS/10 ML VIAL (15:20)
[2017-11-09] MEDS ORDERED: MIDAZOLAM HCL 2 MG/2 ML VIAL (15:20)
[2017-11-09] MEDS ORDERED: CLOPIDOGREL 300 MG TAB (17:18)
[2017-11-09] MEDS ORDERED: MISC INFORMATION XX (18:00)
[2017-11-09] MEDS: TACROLIMUS 0.5 MG CAP PO (18:00)
[2017-11-09] MEDS: PRAVASTATIN SOD 40 MG TAB PO (20:29)
[2017-11-09] MEDS ORDERED: PRAVASTATIN SOD 40 MG TAB PO (21:00)
[2017-11-09] MEDS: SODIUM CHLOR 0.9% 1000 ML INJ 1,000 ML IV (22:48)
[2017-11-10] MEDS: TACROLIMUS 1 MG CAP PO ×2 (05:19→16:22)
[2017-11-10 06:44] LABS: ANION GAP 11 MEQ/L (5-15); BICARBONATE 22.1 MEQ/L (21.0-32.0); BLOOD UREA NITROGEN 19 MG/DL (7-18); CALCIUM 8.4 MG/DL (8.5-10.1); CHLORIDE 104 MEQ/L (98-107); GLUCOSE,RANDOM 125 MG/DL (74-106); POTASSIUM 3.8 MEQ/L (3.5-5.1); SODIUM (NA) 137 MEQ/L (136-145)
[2017-11-10 06:45] LABS: AUTOMATED NEUTROPHIL # 6.3 TH/MM3 (1.8-7.7); BASOPHIL % 0.3 % (0.0-2.0); EOSINOPHIL # 0.1 TH/MM3 (0-0.4); EOSINOPHIL % 1.1 % (0.0-4.0); HEMATOCRIT 27.5 % (39.0-51.0); HEMO FLAGS DIFF FINAL; HEMOGLOBIN 8.7 GM/DL (13.0-17.0); LYMPH % 20.4 % (9.0-44.0); LYMPHOCYTE # 1.8 TH/MM3 (1.0-4.8); MEAN CORPUSCULAR HEMOGLOBIN 21.6 PG (27.0-34.0); MEAN CORPUSCULAR HGB CONC 31.8 % (32.0-36.0); MEAN PLATELET VOLUME 8.3 FL (7.0-11.0); MONO % 9.1 % (0.0-8.0); MONOCYTE # 0.8 TH/MM3 (0-0.9); NEUT % 69.1 % (16.0-70.0); PLATELET COUNT 221 TH/MM3 (150-450); RED BLOOD COUNT 4.04 MIL/MM3 (4.50-5.90); RED CELL DISTRIBUTION WIDTH 18.8 % (11.6-17.2); WHITE BLOOD COUNT 9.1 TH/MM3 (4.0-11.0)
[2017-11-10 06:49] LABS: CREATINE KINASE 114 U/L (39-308); CREATININE 1.51 MG/DL (0.60-1.30); GLOMERULAR FILTRATION RATE 50 ML/MIN (>89)
[2017-11-10 06:57] LABS: TROPONIN I 0.63 NG/ML (0.02-0.05)
[2017-11-10] MEDS: INSULIN ASPART SUPPLEMENTAL SCALE SQ ×4 (08:00→20:42)
[2017-11-10] MEDS: POTASSIUM CHLORIDE 20 MEQ CONTROLLED RELEASE TAB PO ×2 (08:59→20:09)
[2017-11-10] MEDS: MYCOPHENOLATE MOFETIL 250 MG CAP PO ×2 (08:59→20:07)
[2017-11-10] MEDS: CHOLECALCIFEROL (VIT D3) 1000 UNIT TAB PO (08:59)
[2017-11-10] MEDS: METOPROLOL TARTRATE 25 MG TAB PO ×2 (08:59→20:06)
[2017-11-10] MEDS: PANTOPRAZOLE SOD 40 MG DELAYED RELEASE TAB PO (09:00)
[2017-11-10] MEDS: ASPIRIN 81 MG CHEW TAB PO (09:00)
[2017-11-10] MEDS: MAGNESIUM OXIDE 400 MG TAB PO ×2 (09:00→20:07)
[2017-11-10] MEDS: CLOPIDOGREL 75 MG TAB PO (09:01)
[2017-11-10] MEDS: ARIPiprazole 5 MG TAB PO (09:02)
[2017-11-10] MEDS: OXcarbazepine 300 MG TAB PO ×2 (09:03→20:07)
[2017-11-10] MEDS: TORSEMIDE 20 MG TAB PO (09:03)
[2017-11-10] MEDS: PALIPERIDONE ER 3 MG TAB PO (09:03)
[2017-11-10] MEDS: hydrALAZINE HCL 100 MG TAB PO ×3 (09:04→16:22)
[2017-11-10] MEDS: SODIUM CHLORIDE 0.9% FLUSH 10 ML FLUSH IV FLUSH ×2 (09:05→20:10)
[2017-11-10] MEDS: RIVAROXABAN 20 MG TAB PO (14:45)
[2017-11-10] MEDS: TACROLIMUS 0.5 MG CAP PO (16:22)
[2017-11-10] MEDS: ACETAMINOPHEN 325 MG TAB PO (16:23)
[2017-11-10] MEDS: PRAVASTATIN SOD 40 MG TAB PO (20:07)
[2017-11-11] MEDS: LORazepam 2 MG/ML VIAL IV PUSH (01:34)
[2017-11-11] MEDS: TACROLIMUS 1 MG CAP PO (06:12)
[2017-11-11 07:25] LABS: ANION GAP 8 MEQ/L (5-15); BICARBONATE 26.5 MEQ/L (21.0-32.0); BLOOD UREA NITROGEN 16 MG/DL (7-18); CALCIUM 9.7 MG/DL (8.5-10.1); CHLORIDE 104 MEQ/L (98-107); CREATININE 1.27 MG/DL (0.60-1.30); GLOMERULAR FILTRATION RATE 61 ML/MIN (>89); GLUCOSE,RANDOM 160 MG/DL (74-106); POTASSIUM 3.9 MEQ/L (3.5-5.1); SODIUM (NA) 138 MEQ/L (136-145)
[2017-11-11] MEDS: INSULIN ASPART SUPPLEMENTAL SCALE SQ (08:00)
[2017-11-11] MEDS: CHOLECALCIFEROL (VIT D3) 1000 UNIT TAB PO (08:41)
[2017-11-11] MEDS: CLOPIDOGREL 75 MG TAB PO (08:41)
[2017-11-11] MEDS: PALIPERIDONE ER 3 MG TAB PO (08:41)
[2017-11-11] MEDS: POTASSIUM CHLORIDE 20 MEQ CONTROLLED RELEASE TAB PO (08:42)
[2017-11-11] MEDS: TORSEMIDE 20 MG TAB PO (08:42)
[2017-11-11] MEDS: MYCOPHENOLATE MOFETIL 250 MG CAP PO (08:42)
[2017-11-11] MEDS: ARIPiprazole 5 MG TAB PO (08:42)
[2017-11-11] MEDS: OXcarbazepine 300 MG TAB PO (08:43)
[2017-11-11] MEDS: MAGNESIUM OXIDE 400 MG TAB PO (08:43)
[2017-11-11] MEDS: hydrALAZINE HCL 100 MG TAB PO (08:43)
[2017-11-11] MEDS: METOPROLOL TARTRATE 25 MG TAB PO (08:43)
[2017-11-11] MEDS: SODIUM CHLORIDE 0.9% FLUSH 10 ML FLUSH IV FLUSH (08:44)
[2017-11-11] MEDS: RIVAROXABAN 20 MG TAB PO (08:44)
[2017-11-11] MEDS: PANTOPRAZOLE SOD 40 MG DELAYED RELEASE TAB PO (08:44)
== END 2017-11-11 10:53 | disposition home or self-care (01) | DRG 247 ==
LOC: N04A 01:45 → N04B 15:14 → HCIS 16:30
PROC: 027034Z Dilation of Coronary Artery, One Artery with Drug-eluting Intraluminal Device, Percutaneous Approach (ICD-10-PCS; principal; 2017-11-09 15:08)
PROC: 4A023N7 Measurement of Cardiac Sampling and Pressure, Left Heart, Percutaneous Approach (ICD-10-PCS; 2017-11-09 15:08)
PROC: B2111ZZ Fluoroscopy of Multiple Coronary Arteries using Low Osmolar Contrast (ICD-10-PCS; 2017-11-09 15:08)
DX: I21.4 Non-ST elevation (NSTEMI) myocardial infarction (principal); Z94.1 Heart transplant status; F02.81 Dementia in other diseases classified elsewhere, unspecified severity, with behavioral disturbance; I25.811 Atherosclerosis of native coronary artery of transplanted heart without angina pectoris; G40.909 Epilepsy, unspecified, not intractable, without status epilepticus; I10 Essential (primary) hypertension; I48.91 Unspecified atrial fibrillation; F31.9 Bipolar disorder, unspecified; I25.2 Old myocardial infarction; E11.9 Type 2 diabetes mellitus without complications; E78.5 Hyperlipidemia, unspecified; Z79.01 Long term (current) use of anticoagulants; Z95.0 Presence of cardiac pacemaker; Z87.891 Personal history of nicotine dependence
CPT/HCPCS: 71045; 80048; 80053; 82550; 82948; 84484; 85002; 85025; 85610; 85730; 92928; 92978; 93005; 93458; 93571; 99152; 99153